=== PATIENT | male | born 1945 | race Caucasian/White ===

== ENCOUNTER 2023-10-03 13:15 | Outpatient (AMB) | payer MEDICARE, SELFPAY ==
--- NOTE | 2023-10-03 14:34 | MHC.OFFWIV ---
Intake Vital Signs 10/03/23 14:47 Height 5 ft 8 in Weight 199 lb BMI 30.3 BP 130/80 Blood Pressure Location Rt brachial Position Sitting Pulse 64 Pulse Source Pulse Oximeter Temp 98.0 F Temp Source Temporal Artery Scan Pulse Oximetry (%) 98 Oxygen Delivery Method Room Air Intake Visit Reasons: [employer] LFT FT toe pain Intake Note: pt is here today lft foot toe pain started 1 week ago Allergies No Known Allergies Allergy (Verified 10/03/23 15:27) Medication List - Last Reconciled 10/03/23 by Héctor Peraza MD No Known Home Meds Do you need a note to return to daycare/school/sports/work: No HPI [employer] LFT FT toe pain HPI Details 78-year-old male presents to the office for a sick visit. Patient is complaining of pain in the left foot. No history of injury or fall. Patient has had cellulitis in the left leg in the past. Physical Exam Vital Signs: Last Vital Signs Temp 98.0 F 10/03/23 14:47 Pulse 64 10/03/23 14:47 BP 130/80 10/03/23 14:47 Pulse Ox 98 10/03/23 14:47 Oxygen Delivery Method Room Air 10/03/23 14:47 BMI result Body Mass Index 30.3 Extrem Other: Left leg: Peeling erythematous area. This is baseline for patient. Left foot: Swelling over the dorsum of the foot with swollen 4th digit. Mild tenderness. Good vascular pulses. Assessment & Plan Assessment & Plan (1) Cellulitis of foot: Code(s): L03.119 - Cellulitis of unspecified part of limb Plan: Antibiotics and anti-inflammatory called in. If symptoms not better to follow-up here. Keep foot elevated. Coding Level of Care Code Est Pt Level 3 (11531) Diagnoses Cellulitis of foot L03.119
[2023-10-03 14:47] VITALS: BP 130/80; PULSE 64; TEMP 36.7; O2SAT 98; BMI 30.3
== END 2023-10-03 15:49 | disposition home or self-care (01) ==
PROVIDERS: PCP Internal Medicine; Visit Provider Internal Medicine
DX: L03.119 Cellulitis of unspecified part of limb (principal)
CPT/HCPCS: 99213